=== PATIENT | male | born 1975 | race Caucasian/White ===

== ENCOUNTER 2016-06-26 21:30 | Emergency (ER) | payer OTHER ==
[~2016-06-26] VITALS: Ht 182.9 cm; Wt 95.3 kg
[2016-06-26] MEDS ORDERED: KEFLEX500 MG PO (23:50)
[2016-06-26 23:58] VITALS: BP 132/82
== END 2016-06-27 00:02 | disposition home or self-care (01) ==
LOC: EXP 21:30 → EME 21:30 → EXP 06-27 00:02
DX: S61.011A Laceration without foreign body of right thumb without damage to nail, initial encounter (principal); S60.221A Contusion of right hand, initial encounter; Z23 Encounter for immunization; W26.0XXA Contact with knife, initial encounter; W23.0XXA Caught, crushed, jammed, or pinched between moving objects, initial encounter; Y99.0 Civilian activity done for income or pay
CPT/HCPCS: 73130; 99281; 99283

== ENCOUNTER 2016-07-02 18:46 | Emergency (ER) | payer OTHER ==
[~2016-07-02] VITALS: Ht 182.9 cm; Wt 95.4 kg
[~2016-07-02 18:46] MED LIST: KEFLEX500 MG PO
[2016-07-02 19:59] LABS: HEMATOCRIT 45.4 % (38.0-50.0); MCH 31.3 PG (29.0-34.0); MCHC 34.6 G/DL (30.0-36.0); MCV 90.6 FL (86-99); MEAN PLAT.VOLUME 11.2 uM^3 (9.0-12.4); PLATELET COUNT 216 K/uL (156-360); RBC DIS.WIDTH-CV 13.4 % (11.8-14.6); RBC DIS.WIDTH-SD 43.9 % (39-53); RED BLOOD COUNT 5.01 M/uL (4.00-5.50); WHITE BLOOD COUNT 8.1 K/uL (4.1-10.2)
[2016-07-02 20:06] LABS: CHLORIDE 111 mEq/L (99-109); POTASSIUM 3.5 mEq/L (3.7-5.4); SODIUM 146 mEq/L (136-147)
[2016-07-02 20:09] LABS: GLUCOSE 119 mg/dL (70-99)
[2016-07-02 20:10] LABS: ANION GAP 15 MEQ/L (2-14); TOTAL BILIRUBIN 0.3 mg/dL (0.0-1.0)
[2016-07-02 20:11] LABS: SERUM ETHYL ALCOHOL 57 mg/dL
[2016-07-02 20:12] LABS: ALKALINE PHOSPHATASE 74 IU/L (3-129); GFR ESTIMATE (CALCULATED) > 59 mL/min/
[2016-07-02 20:13] LABS: UREA NITROGEN (BUN) 8 mg/dL (9-23)
[2016-07-02 22:36] VITALS: BP 120/74
== END 2016-07-02 22:38 | disposition home or self-care (01) ==
LOC: EME 18:46
PROVIDERS: Emergency Medicine
DX: F34.1 Dysthymic disorder (principal); J45.909 Unspecified asthma, uncomplicated; F17.200 Nicotine dependence, unspecified, uncomplicated
CPT/HCPCS: 80053; 81003; 85027; 90837; 99281; 99285; G0480; J2060; J3486

== ENCOUNTER 2017-08-02 17:22 | Emergency (ER) | payer OTHER ==
[~2017-08-02] VITALS: Ht 185.4 cm; Wt 96.0 kg
[~2017-08-02 17:22] MED LIST changes: +TYLENOL REGULA325 MG PO
== END 2017-08-02 18:53 | disposition home or self-care (01) ==
LOC: EME 17:22
DX: J20.9 Acute bronchitis, unspecified (principal); J45.909 Unspecified asthma, uncomplicated; F17.200 Nicotine dependence, unspecified, uncomplicated; Z71.6 Tobacco abuse counseling
CPT/HCPCS: 87651 90; 99281; 99284

== ENCOUNTER 2017-09-29 20:03 | Emergency (ER) | payer OTHER ==
[~2017-09-29] VITALS: Ht 182.9 cm; Wt 93.3 kg
[2017-09-29 21:00] LABS: HEMATOCRIT 40.7 % (38.0-50.0); HEMOGLOBIN 14.1 G/DL (12.5-16.6); MCH 32.2 PG (29.0-34.0); MCHC 34.6 G/DL (30.0-36.0); MCV 92.9 FL (86-99); RBC DIS.WIDTH-CV 13.2 % (11.8-14.6); RED BLOOD COUNT 4.38 M/uL (4.00-5.50); WHITE BLOOD COUNT 8.6 K/uL (4.1-10.2)
[2017-09-29 21:10] LABS: CHLORIDE 107 mEq/L (99-109); POTASSIUM 3.7 mEq/L (3.7-5.4); SODIUM 141 mEq/L (136-147)
[2017-09-29 21:11] LABS: GLUCOSE 96 mg/dL (70-99)
[2017-09-29 21:13] LABS: D-DIMER ELISA < 150.00 ng/mLDDU (<230)
[2017-09-29 21:15] LABS: CREATININE 1.1 mg/dL (0.6-1.3); GFR ESTIMATE (CALCULATED) > 59 mL/min/ (58.99-99999)
[2017-09-29 21:16] LABS: UREA NITROGEN (BUN) 13 mg/dL (9-23)
[2017-09-29 21:22] LABS: TROP-I INTERPRETATION NEGATIVE; TROPONIN-I < 0.01 ng/mL (0.0-0.30)
[2017-09-29 21:44] LABS: PLAT.SUFFICIENCY ADEQUATE; PLATELET COUNT 176 K/uL (156-360)
[2017-09-29 22:39] VITALS: BP 118/66
== END 2017-09-29 22:39 | disposition home or self-care (01) ==
LOC: EME 20:03
PROVIDERS: Nurse Practitioner Family
DX: R07.89 Other chest pain (principal); R06.02 Shortness of breath; J45.909 Unspecified asthma, uncomplicated; F17.200 Nicotine dependence, unspecified, uncomplicated
CPT/HCPCS: 71046; 80048; 84484; 85027; 85379; 93005; 94640; 99281; 99284